=== PATIENT | male | born 1965 | race Caucasian/White ===

== ENCOUNTER 2020-03-14 05:51 | Inpatient (IN) | payer OTHER ==
[~2020-03-14] VITALS: Ht 177.8 cm; Wt 83.5 kg
--- OUTSIDE RECORDS SUMMARY | ~2020-03-14 | XMS | Encounter Summary ---
Demographics + + + | Address | [address] | | | [place] [address] | + + + | Home Phone | | + + + | Preferred Language | Unknown | + + + | Marital Status | Unknown | + + + | Baptist Affiliation | Unknown | + + + | Race | Unknown | + + + | Ethnic Group | Unknown | + + + Author + + + | Author | [facility] | + + + | Organization | [facility] | + + + | Address | Unknown | + + + | Phone | Unavailable | + + + Care Team Providers + +------+ + | Care Personnel Quality Assurance Auditor Name | Role | Phone | + +------+ + PCP | Unavailable | + +------+ + Encounter Details +--------+ + + + + | Date | Type | Department | Care Team | Description | +--------+ + + + + | 07/23/ | Office | Epic at [facility] | Felipe Myles, | Progress Note | | 2017 | Visit-Trans | [address] | MD [address] | | | | cribed | [place], [place] | [address] | | | | | [address] | [place], [place] | | | | | | [address] | | | | | | [phone] | | | | | | | | +--------+ + + + + Social History + +-------+ +--------+------+ | Tobacco Use | Types | Packs/Day | Years | Date | | | | | Used | | + +-------+ +--------+------+ | Never Assessed | | | | | + +-------+ +--------+------+ + + + | Sex Assigned at | Date Recorded | | | | + + + | Not on file | | + + + documented as of this encounter Progress Notes Felipe Myles MD - 01/23/2017 1:54 PM PDT51 year old left hand dominant male presents w ith a chief complaint of left hand pain for the past 3 months (04/24/16 date of injury). The pain is primarily located in the central palm over an area of an approximately 1 cm in diam eter mass which he reports was not present prior to an industrial work injury when a piece of steel fell on his right shoulder ended up falling severalfeet, striking his left palm vasyl arently on a bolt which was in the floor. Initially treatment was directed at the shoulder and back and he is undergoing further treatment of that through occupational medicine, [facility] at follow-up visits with occupational medicine he brought up the left hand, underwent an x-ray which was read as negative. 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 History and imp roved slowly with avoidance of use and avoidance of pressure over the mass. He does not rec all having a laceration at the time of the injury in the palm, no bleeding. PCP: Dr. Nayan Childress Referring Physician: Dr. 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 All other systems were negative and are documented in the intake patient questionaire, results of which are reviewed today in clinic. Physical Exam Height: 5'10 Weight: 198 lbs Appearsstated age, in no acute distress, alert and oriented to person, place, and date. No increased work of breathing, regular rate and rhythm left radial pulse. Intact hearing to spoken word, and mood and affect are somewhat anxious. UE: Patient has full and symmetric range of motion of bilateral elbows and wrists. Appearance/ROM: Distance to palmar crease is 0 cm in all fingers. Symmetric, full wrist ex tension and flexion as well as forearm rotation. There is an approximately 1 cm in diameter palpable nodule that is firm just proximal to the long and ring finger MPjoints in the centr al palm with slight dimpling distally, but no contracture, possibly consistent with palmar f ibromatosis/Dupuytren's nodule. It is fairly exquisitely tender to palpation, no erythema i s evident. No underlying palpable triggering, minimal tenderness MP joints dorsally. Strength: Patient has full 5/5 strength with wrist extension, flexion, pronation, supinatio n, finger flexion and extension, however there is a little bit ofapprehension and guarding w ith strength testing. There is no intrinsic atrophy. There is a strong and palpable firin g APB and firstdorsal interosseous. The other extrinsics and intrinsics to the fingers and t humb appear to be firing normally. Neurovascular: Patient has intact sensation to light touch in the median, radial, and ulnar nerve distributions. There is a 2+ radial pulse and brisk capillary refillthroughout all o f the fingers and thumb. 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 IMPRESSION: left palmar mass after trauma 3 months ago, differential includes palmar fibro matosis/Dupuytren's versus inclusion cyst versus some other etiology, pain symptoms somewhat out of proportion to exam PLAN: 1.I have explained to the patient the nature of the above possible diagnosis, the findings of the radiographic studies, and possible treatment options. All questions were answered. 2. We reviewed the relevant anatomy and pathophysiology at today's visit. 3. I wouldrecommend MRIwith and without contrast of the hand evaluate the mass and assess the etiology. Typically Dupuytren's is genetically inherited however there are some sporadi c accounts in the literature of trauma induced Dupuytren's, I will try to review that hunter stephen before the next appointment when he comes back for MRI review. I gave him some literatu re on Dupuytren's as that is my leading possible diagnosis, however confirmation pending MRI . I explained Dupuytren's is usually not painful but some evidence of painful nodules has malgorzata gerber described. Treatment could consist of corticosteroid injection or surgical excision wit h a known risk of worsening contracture. 4. Plan will be for follow-up after MRI.Electronically signed by Felipe Myles MD at 8:26 AM PDTdocumented in this encounter Plan of Treatment Not on filedocumented as of this encounter Visit Diagnoses Not on filedocumented in this encounter"
--- OUTSIDE RECORDS SUMMARY | ~2020-03-14 | XMS | Clinical Summary ---
Demographics + + + | Address | [address] | | | [place] [address] | + + + | Home Phone | | + + + | Preferred Language | Unknown | + + + | Marital Status | Unknown | + + + | Restorationist Affiliation | Unknown | + + + | Race | Unknown | + + + | Ethnic Group | Unknown | + + + Author + + + | Organization | Unknown | + + + | Address | Unknown | + + + | Phone | Unavailable | + + + Care Team Providers + +------+ + | Care Signal Intelligence/Electronic Warfare Name | Role | Phone | + +------+ + PCP | Unavailable | + +------+ + Source Comments EBEN is fully live on both [facility] and [facility] Allergies Not on File Medications Not on file Active Problems Not on file Social History + +-------+ +--------+------+ | Tobacco [...] on file | | + + + Last Filed Vital Signs Not on file Plan of Treatment + + +-------+ + | Health Maintenance | Due Date | Last | Comments | | | | Done | | + + +-------+ + | Influenza (Flu) | | | | | vaccination (#1) | 0 | | | + + +-------+ + | Pneumococcal | Aged Out | | No longer eligible based on patient's age | | vaccination | | | to complete this topic | + + +-------+ + Results Not on filefrom Last 3 Months"
--- OUTSIDE RECORDS SUMMARY | ~2020-03-14 | XMS | Encounter Summary ---
Demographics + + + | Address | [address] | | | [place] [address] | + + + | Home Phone | | + + + | Preferred Language | Unknown | + + + | Marital Status | Unknown | + + + | Mu-Ism Affiliation | Unknown | + + + [...] Team Providers + +------+ + | Care Sterile Preparation Technician Name | Role | Phone | + +------+ + PCP | Unavailable | + +------+ + Encounter Details +--------+ + + + + | Date | Type | Department | Care Team | Description | +--------+ + + + + | 08/12/ | Office | Epic at [facility] | Felipe Myles, | Progress Note | | 2017 | Visit-Trans | [address] | MD [address] | | | | cribed | [place], [place] | [address] | | | | | [address] | [place], [place] | | | | | | [address] | | | | | | [phone] | | | | | | | [...] Progress Notes Felipe Myles MD - 01/23/2017 1:24 PM PDT51 year old left hand dominant male presents f or follow-up of his left palmar mass, and MRI review. He initially presented to me a couple of weeks agowith a chief complaint of left hand pain for the past 3 months (04/24/16 date of injury). The pain is primarily located in the central palm over an area of an approximatel y 1 cm in diameter mass which he reports was not present prior to an industrial work injury when a piece of steel fell on his right shoulder ended up falling several feet, striking hi s left palm apparently on a bolt which was in the floor. Initially treatment was directed a t the shoulder and back and he is undergoing further treatment of that through occupational medicine, however at follow-up visits with occupational medicine he brought up the left hand , underwent an x-ray which was read as negative. 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 I was s uspicious for Dupuytren's nodule or someother entity, I ordered an MRI To better evaluate. This has been obtained and he is here for follow-up. PCP: Dr. Nayan Childress Referring Physician: Dr. Gao PMH: Negative PSH: Negative Allergies: NKDA Medications: None SH: Unknown Tobacco: Denies EtOH: Denies Occupation: [employer] @ [employer]: [place] FH: Negative ROS: Pertinent positives from original complete 12 system review include: as per history o f present illness. All other systems were negative and are documented inthe intake patient questionaire, results of which are reviewed today in clinic. Physical Exam Height: 5'10 Weight: 198 lbs Appears stated age, in no acute distress, alert and oriented to person, place, and date. N o increased work of breathing. Intact hearing to spokenword, and mood and affect are approp riate, he is less anxious today. UE: Patient has full and symmetric range of motion of bilateral elbows and wrists. Appearance/ROM: Distance to palmar crease is 0 cm in all fingers. Symmetric, full wrist ex tension and flexion as wellas forearm rotation. There is an approximately 1 cm in diameter p alpable nodule that is firm just proximal to the long and ring finger MP joints in the centr al palm with slight dimpling distally, but no contracture, possibly consistent with palmar f ibromatosis/Dupuytren's nodule. It is fairly exquisitely tender to palpation, no erythema i s evident. There is a little bit of dimpling at the distal aspect of the mass in the skin. N o underlying palpable triggering, minimal tenderness MP joints dorsally. Strength: Patient has full 5/5 strength with wrist extension, flexion, pronation, supinatio n, finger flexion and extension, however there is a little bit ofapprehension and guarding w ith strength testing. There is no intrinsic atrophy. There is a strong and palpable firin g APB and first dorsal interosseous. The other extrinsics and intrinsics to the fingers and thumbappear to be firing normally. Neurovascular: Patient has intact sensation to light touch in the median, radial, and ulnar nerve distributions. There is a 2+ radial pulse and brisk capillary refill throughout all of the fingers and thumb. 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 Patient's MRI is reviewed. This demonstrates a small amount of edema in the interosseousMu sculature and a superficial heterogeneous mass of about 1 cm in diameter that has the charac teristics fibromatosis. IMPRESSION: left palmar mass after trauma 3 months ago, differential includes palmar fibro matosis/Dupuytren's versus scar tissue or organized hematoma or neuroma. PLAN: 1. I have explained to the patient the nature of the above possible diagnosis, the finding s of the radiographic studies, and possible treatment options. All questions were answered. 2. We reviewed the relevant anatomy and pathophysiology at today's visit. 3. I reviewed the MRI with him, I explained that the characteristics are most in line with the Dupuytren's nodule, howeverI cannot make that diagnosis with complete certainty without excisional biopsy. I think given the significant symptoms he is having, it would be warrant ed to excise this mass for excisional biopsy and treatment. I explained the if it is a smal l neuroma, it could leave him with someneurologic deficit, namely a small area of numbness a lternatively if a Dupuytren's nodule, it could recur, or contracture could develop postopera tively. I explained the possible risks of complications with surgical intervention. I thi nk causation can be related to the trauma if indeed the mass was not present for his trauma , there is some literature supporting the notion that on occasion Dupuytren's can be sparke d by an acute trauma. Alternative treatment to surgical excision would be a trial of cortic osteroid injection or core needle biopsy. He is in favor of surgical e 4. After discussing surgical intervention and him agreeing to it, he states that he is unw illing to undergo surgery at [facility] due to prior experience, I do not have privileges elsew here, he says he will seek out a different hand surgeon I am happy to forward records.Electr onically signed by Felipe Myles MD at 02/05/2017 7:51 AM PDTdocumented in this encounter Plan of Treatment Not on filedocumented as of this encounter Visit Diagnoses Not on filedocumented in this encounter
[2020-03-14] MEDS ORDERED: JARDIANCE25 MG PO (06:26)
[2020-03-14] MEDS ORDERED: TOUJEO SOL300 UNIT/1 SUB-Q (06:28)
[2020-03-14] MEDS ORDERED: PROTONIX40 MG PO (06:28)
[2020-03-14] MEDS ORDERED: OZEMPIC1 MG/0.75 SUB-Q (06:28)
[2020-03-14] MEDS ORDERED: GLUCOPHAGE500 MG PO (06:29)
[2020-03-14] MEDS ORDERED: LOVASTATIN20 MG PO (06:29)
[2020-03-14] MEDS ORDERED: LISINOPRIL40 MG PO (06:29)
[2020-03-14] MEDS ORDERED: AMARYL4 MG PO (06:30)
[2020-03-14] MEDS ORDERED: METFORMIN HCL500 MG PO (11:24)
--- NOTE | 2020-03-14 12:30 | NUR ---
THIS RN IN PTS ROOM PER PT REQUEST. PT APPEARS TO BE IN SEVERE PAIN 9/10 PAIN. THIS RN PROVIDED PT WITH 1MG DILUADID. PT THEN OFF TO DAY SURGERY AT THIS TIME. THIS RN GAVE SHORT REPORT TO ILIR ALVAREZ.
--- NOTE | 2020-03-14 13:36 | CONS ---
[facility] [address] [place], [place] [address] Signed DATE OF CONSULTATION: 03/14/2020 CHIEF COMPLAINT: Right lower quadrant abdominal pain. HISTORY OF PRESENT ILLNESS: Hilda is a 54-year-old diabetic gentleman, who came out from [place], [place] to help his son with some house construction. 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 For the last couple of days, he was developing vague abdominal pain that became periumbilical and eventually it moved to the right lower quadrant. He has had nausea, vomiting, diarrhea, and some fevers. He came to emergency room for evaluation. In emergency room, he was tender in the right lower quadrant with an elevated white blood cell count. The CT scan confirmed his thickened dilated appendix with several appendicoliths. Consequently, he has been admitted and started on his IV antibiotics and hydration. We did have the Internal Medicine Service see him because of the history of diabetes. I did review currently. In the meantime, I have been in the operating room. PAST MEDICAL HISTORY: Diabetes, hypertension, gastroesophageal reflux disease, and hypercholesterolemia. PAST SURGICAL HISTORY: Includes left hand and a right inguinal hernia surgery at age 7. SOCIAL HISTORY: He does not smoke or drink. He lives in [place], [place]. 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 His primary care provider is Dr. Nayan Childress. His son lives here in [place], [place]. I have taken care of his son with respect to celiac sprue. His mother is Danica Roman at [phone]. His mother is with him today. FAMILY HISTORY: Mom had diabetes. REVIEW OF SYSTEMS: He had 10 systems reviewed and he talked to me about his right inguinal hernia repair at age 7. ALLERGIES: None. MEDICATIONS: Jardiance, Toujeo, Protonix, Ozempic, metformin, lisinopril, lovastatin and Amaryl. Electronically Signed By: VIPUL BARNETT MD 03/14/20 1336 PATIENT NAME: HILDA ROMAN CONSULTATION DATE OF : 65 REPORT #: [id number] PHYSICIAN: VIPUL BARNETT MD PCP: OTHER PCP REPORT IS CONFIDENTIAL AND NOT TO BE RELEASED WITHOUT AUTHORIZATION [facility] [address] [place], [place] [address] Signed PHYSICAL EXAMINATION: VITAL SIGNS: Blood pressure is 125/65, his heart rate is 94, respiratory rate 18, temperature 98.5, he is 98% on room air, he is 5 feet 10 inches at 83 kg. GENERAL: Hilda is a 54-year-old gentleman, lying supine in his hospital bed. His mom is at the bedside. He does not appear systemically ill or toxic. He is a good historian. LUNGS: Clear to auscultation bilaterally. HEART: Regular rate and rhythm without murmur. ABDOMEN: Moderately protuberant, but soft. He clearly has localized peritoneal signs and symptoms in the right lower quadrant. He has some ecchymoses in the right lower quadrant associated with his insulin shots. LABORATORY DATA: His white blood count is 22.5, neutrophils 79, BUN 20, creatinine 1.2, magnesium 1.6. Liver function tests are negative. Albumin is 4.7. Urinalysis showed glucose. Blood sugar was 155. RADIOGRAPHIC STUDIES: A CT scan of the abdomen and pelvis shows thickened dilated appendix with multiple appendicoliths. He has moderate periappendiceal fat stranding. No evidence of an obvious abscess. ASSESSMENT/PLAN: Hilda is a 54-year-old gentleman, who presents with his acute appendicitis. He has been admitted on IV fluids and antibiotics. Our Internal Medicine Service has seen him as well. I reviewed with him the above findings. We have reviewed the location and function of the appendix. We have reviewed laparoscopic versus open appendectomy. He understands the expected intraop and postop course. We did review the risks including, but not limited to bleeding, infection, scarring, change in contour of the skin, damage to bowel, appendiceal stump leak, postoperative intraabdominal abscess, incisional hernias and other unforeseen comorbidities. He has expressed understanding and would like to proceed. Vipul Barnett MD ALB/MODL /[id number] cc: Vipul Barnett MD Electronically Signed By: VIPUL BARNETT MD 03/14/20 1336 PATIENT NAME: HILDA ROMAN CONSULTATION DATE OF : 65 REPORT #: [id number] PHYSICIAN: VIPUL BARNETT MD PCP: OTHER PCP REPORT IS CONFIDENTIAL AND NOT TO BE RELEASED WITHOUT AUTHORIZATION [address] [address] Signed Sj Childress DO Copies: VIPUL BARNETT MD ~ Electronically Signed By: VIPUL BARNETT MD 03/14/20 1336 PATIENT NAME: HILDA ROMAN CONSULTATION DATE OF : 65 REPORT #: [id number] PHYSICIAN: VIPUL BARNETT MD PCP: OTHER PCP REPORT IS CONFIDENTIAL AND NOT TO BE RELEASED WITHOUT AUTHORIZATION
--- NOTE | 2020-03-14 14:03 | NUR ---
PATIENT AWAKE IN CHAIR, SISTER IN ROOM. VITALS AND I&OS CHARTED. CALL LIGHT IN REACH
--- NOTE | 2020-03-14 15:34 | NUR ---
03/14/20 1534 [place] 1528 PT ARRIVED TO PACU WITH ORAL AIRWAY IN PLACE, O2 MASK AT 8L. SECOND RN AT BEDSIDE DOING JAW THRUST TO MAINTAIN AIRWAY. PT NONAROUSABLE TO PAINFUL STIMULI.
--- NOTE | 2020-03-14 16:30 | NUR ---
PT ARRIVED BACK FROM SURGERY AT THIS TIME. PT STATES THAT HE ISN'T HAVING PAIN AT THIS TIME OR NAUSEA. PT HAS 2 INSICIONS, 1 RIGHT UPPER QUADRANT AND ONE MIDLINE INSCION. PTS MOM IN ROOM AT THIS TIME
--- NOTE | 2020-03-14 17:30 | NUR ---
THIS RN IN PTS ROOM TO CHECK ON PT. PT STATES THAT HE IS HAVING NO PAIN OR NAUSEA AT THIS TIME. PTS DRESSING IS CLEAN/DRY AND INTACT. PTS ONLY CONCERN AT THIS TIME IS TO HAVE HIS CATHETER TAKEN OUT AND TO GET OFF THE OXYGEN. THIS RN TITRATED PT OFF OF OXYGEN TO NASAL CANNULA. PT SATING 92-93% ON ROOM AIR.
--- NOTE | 2020-03-14 17:53 | NUR ---
THIS RN COLLED TO NOTIFY HIM THAT PTS REQUEST IS TO HAVE HIS CATHETER. OKAY TO HAVE FUNG OUT. THIS RN REMOVED FUNG AND PT TOLERATED WELL.
--- NOTE | 2020-03-14 18:43 | NUR ---
THIS RN IN PTS ROOM TO DO POST OPP CHECK #3. PT STATES THAT HE HAS "SORENESS" IN HIS ABDOMEN BUT DENIES THE NEED FOR SOMETHING FOR THE PAIN. PTS DRESSING IS CLEAN/DRY/INTACT.
--- NOTE | 2020-03-14 19:20 | NUR ---
PT CALLED, CPOX WAS BEEPING, RESOLVED ISSUE, PT STATES PAIN MEDS FELT LIKT THEY WERE WEARING OFF, INFORMED PRIMARY RN, LAST SET OF POSTOP VITALS TAKEN, NO FURTHER REQUESTS FOR ME AT THIS TIME, RN IN TO ASSESS PAIN MANAGEMENT
--- NOTE | 2020-03-14 19:39 | NUR ---
PT REPORTS /10 ABD PAIN, PRN PAIN MED PROVIDED. SCHEDULED MEDS PROVIDED. IV WNL, CDI, FLUSHED WELL. INCSISIONS WNL. VS TAKEN BY HANNAH LE. NO OTHER NEEDS AT THIS TIME. CALL LIGHT IN REACH.
--- NOTE | 2020-03-14 20:22 | NUR ---
PT REPORT RECEIVED FROM HAROON ALVAREZ. PT RESTING IN BED. NO NEEDS AT THIS TIME. CALL LIGHT IN REACH.
--- NOTE | 2020-03-14 21:25 | NUR ---
TOOK PT VITALS, PT IS DUE TO VOID, PT C/O PAIN 'STARTING TO COME BACK' PT DENIES NEEDING TO VOID AT THIS TIME, PT ALSO TURNED OFF CPOX, PT STATES, 'IT'S BEEN ALARMING TO MUCH,' EDUCATED PT ON THE IMPORTANCE OF KEEPING THE CPOX ON, TOLD PT I WILL ASK THE PRIMARY RN ABT TAKING THE CPOX OFF, INFORMED RN OF PT PAIN, NO FURTHER REQUESTS AT THIS TIME
--- NOTE | 2020-03-14 21:55 | NUR ---
ASSESSMENT COMPLETED. SCHEDULED MEDS PROVIDED. PT DECLINED THE I UNIT INSULIN, DOCUMENTED. PT PAIN 4/10 IN ABD, PRN PAIN MED PROVIDED. GCS 15, A&O X4. CPOX 93%, RA. LUNGS CLEAR. ABD SOFT, TENDER, BOWEL TONES ACTIVE. RUQ PUNCTURE COVERED. WNL. MIDLINE INCISION COVERED, SMALL AREA OF SHADOWING. PT STATES ABD IS NORMAL. CMS INTACT X4 EXTREMITIES. IV WNL, FLUSHED IV MEDS AND FLUIDS INFUSING PER ORDER. ICE WATER AND JELLO PROVIDED. NO OTHER NEEDS AT THIS TIME. FAMILY IN ROOM. CALL LIGHT IN REACH.
--- NOTE | 2020-03-15 00:05 | NUR ---
PT STATES HE HAS 7OR 01/01 ABD PAIN, PRN PAIN MED PROVIDED. IV WNL, IV FLUIDS INFUSING PER ORDER. CALL LIGHT IN REACH.
--- NOTE | 2020-03-15 02:27 | NUR ---
TOOK VITALS, I&Os IN, PT EDUCATION ON I.S. DUE TO TEMP OF 99.0*, RN INFORMED, IN IN RM TO HANG IV ANTIBIOTIC, NO FURTHER REQUESTS AT THIS TIME
--- NOTE | 2020-03-15 02:31 | NUR ---
ASSESSMENT COMPLETED. SCHEDULED MEDS PROVIDED. 12/01 ABD PAIN, PRN PAIN MED PROVIDED. GCS 15, A&O X4. LUNGS CLEAR. ABD SOFT, NONTENDER, PT STATES NORMAL. RUQ PUCTURE WNL, DRY. MIDLINE INCISION WNL, SHOWS SHADOWING OF BLOOD. CMS INTACT X4 EXTREMITIES. NO OTHER NEEDS AT THIS TIME. CALL LIGHT IN REACH.
--- NOTE | 2020-03-15 04:23 | NUR ---
PT STATES HE HAS 7/10 ABD PAIN, PRN PAIN MED PROVIDED. ICE WATER PROVIDED. NO OTHER NEEDS AT THIS TIME. CALL LIGHT IN REACH.
--- NOTE | 2020-03-15 05:07 | NUR ---
PT DID NOT SLEEP WELL THIS SHIFT. PRN PAIN MED MODERATELY MANAGED ABD PAIN FOR ABOUT 1.5 HOURS AT A TIME. PT STATES PAIN STILL FEELS LIKE HE CAN'T TAKE A FULL DEEP BREATH. COLD THERAPY DID NOT HELP. VSS. UOS. INCISIONS WNL, SHADOWING ON COVERING. PT TOLERATED IV MEDS WELL. IV WNL, FLUSHED WELL. PT STATES HE IS PASSING GAS, ABD IS NORMAL, ACTIVE BOWEL TONES, TENDER.
--- NOTE | 2020-03-15 05:37 | OR ---
[facility] [address], [place] [address] Signed DATE OF OPERATION: 03/14/2020 SURGEON: Vipul Mock MD PREOPERATIVE DIAGNOSIS: Acute appendicitis. POSTOPERATIVE DIAGNOSIS: Acute necrotic appendicitis. PROCEDURE: Laparoscopic converted to open appendectomy. ESTIMATED BLOOD LOSS: Minimal. FINDINGS: Hilda had his appendix curled inferiorly and medially and densely adherent to the underlying retroperitoneum and mesentery to the terminal ileum. Consequently, we could not raise that up in the operative field laparoscopically. We therefore converted him to an open appendectomy. His appendix is necrotic, but fortunately there was no abscess cavity. INDICATIONS: Hilda is a 54-year-old gentleman, who lives in the [place], [place] area. 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 About two maybe even three days ago, he developed generalized abdominal pain that became periumbilical and eventually became right lower quadrant. He came to emergency room for evaluation. He had localized peritoneal signs and symptoms in the right lower quadrant. White count was elevated at 22.5. The CT scan showed the dilated thickened appendix with multiple appendicolith. He had moderate periappendiceal fat straining. I have been asked to admit him as a general surgeon on-call. He was admitted, hydrated given antibiotics and pain control. We did have our Internal Medicine Service see him for his medical issues particularly his diabetes. I had met with Hilda and his , Danica in the hospital room. We reviewed the above findings. We reviewed the location and function of the appendix. We discussed laparoscopic versus open appendectomy. I had shared with Hilda and his that the appendix was underneath his terminal ileum that he might be in the 3% cases that we have to do open. However, we always start laparoscopically. We had reviewed the expected intraop and postop course. They do understand there is a risk including, but not limited to bleeding, infection, scarring, change in contour of skin damage to Electronically Signed By: VIPUL MOCK MD 03/15/20 0537 PATIENT NAME: HILDA MILLAN OPERATIVE REPORT DATE OF : 65 REPORT #: [id number] PHYSICIAN: VIPUL MOCK MD PCP: OTHER PCP REPORT IS CONFIDENTIAL AND NOT TO BE RELEASED WITHOUT AUTHORIZATION [address] [address] Signed bowel, appendiceal stump leak, postoperative intraabdominal abscess, incisional hernias and other unforeseen comorbidities. They had expressed understanding and wished to proceed. DESCRIPTION OF PROCEDURE: Hilda was taken into the operating room and placed in a supine position under general endotracheal tube anesthesia. Hilda informed us he has a very narrow airway. Indeed, our anesthesia provider found that to be true. He was already on preoperative antibiotics along with subcutaneous Lovenox. His SCDs were in place. A Novak catheter was inserted with return of clear yellow urine without difficulty. He was then prepped and draped in the usual sterile fashion. We placed our trocars in our usual positions under direct visualization of the camera without difficulty. We were able to rotate the inflamed terminal ileum off the area of the cecum and the appendix. He had turbid fluid in the pelvis. The cecum was generally mobile, but the appendix was densely adherent posteriorly. We simply could not safely dissect through that area with our laparoscopic instruments. In addition, Hilda on physical exam had a small umbilical hernia. Consequently, we had used the umbilical hernia for our trocar site. We simply extended his periumbilical incision vertically and slightly wider than my hand. We were able to then retract the abdomen over and use moist laps to hold the small bowel and cecum back in out of the away. Indeed, his appendix was absolutely adhered to the mesentery of the terminal ileum. We used our Pean clamp to dissect free the base of the appendix. It was divided and that was tied off with a suture ligature of oh Vicryl suture. The appendiceal stump was then gently cauterized. Even with our index finger and thumb, we could not separate the necrotic appendix from the underlying mesentery. Consequently, we simply used our cautery and came to the mesentery, the appendiceal mesentery right next to the appendix. We did have an 0 Vicryl suture ready in case the appendiceal artery , but it never did. I suspect it is thrombosed. Once the appendix was freed, it was passed off the field. He had some inflammatory changes posteriorly, but no true abscess cavity. We went ahead and irrigated this area with warm antibiotic saline solution until clear. The cecum and small bowel were then returned to its position and omentum was placed over that. We then closed our midline fascia with interrupted #1 [id number] PDS sutures. We had used our laparoscopic suturing device to pass 0 Vicryl suture on either side of the fascia of the right subcostal trocar site and it had been closed primarily prior to opening the abdomen. We then injected local anesthetic into both trocar sites as well as the periumbilical incision. The wounds were all irrigated and suctioned out until clear. The umbilical skin and fascia was held back down to the midline with an interrupted 2-0 PDS suture. The dermis of each incision was then reapproximated with interrupted 3-0 subcuticular Monocryl sutures. We then used carol to reapproximate the skin of the periumbilical vertical incision. After this, dry gauze and tape were applied to all three incisions. His Novak catheter was left in place. Hilda was awakened from his anesthesia, extubated in the OR, and taken to recovery room in stable condition. Electronically Signed By: VIPUL MOCK MD 03/15/20 0537 PATIENT NAME: HILDA MILLAN OPERATIVE REPORT DATE OF : 65 REPORT #: [id number] PHYSICIAN: VIPUL MOCK MD PCP: OTHER PCP REPORT IS CONFIDENTIAL AND NOT TO BE RELEASED WITHOUT AUTHORIZATION [address] [address] Signed MD ANJALI Silver/RYLAND /[id number] cc: Dr. Nayan Childress Copies: ~ Electronically Signed By: VIPUL MOCK MD 03/15/20 0537 PATIENT NAME: HILDA MILLAN OPERATIVE REPORT DATE OF : 65 REPORT #: [id number] PHYSICIAN: VIPUL MOCK MD PCP: OTHER PCP REPORT IS CONFIDENTIAL AND NOT TO BE RELEASED WITHOUT AUTHORIZATION
--- NOTE | 2020-03-15 06:39 | NUR ---
PT STATES HE HAS 9/10 ABD PAIN AND NAUSEA. PRN PAIN AND NAUSEA MEDS PROVIDED. NO OTHER NEEDS AT THIS TIME. CALL LIGHT IN REACH.
--- NOTE | 2020-03-15 07:29 | NUR ---
0700; REPORT RECEIVED FROM SHURTI ALVAREZ. PT RESTING IN HIS BED WITH HIS CALL BERRY WITHIN REACH AND NO NEEDS AT THIS TIME.
--- NOTE | 2020-03-15 08:11 | NUR ---
PT STATES HIS ABD PAIN IS UNDER CONTROL AT A 3/10 AT THIS TIME. MIDLINE ABD DRESSING NOTED TO HAVE SOME SHADOWING BUT REMAINS INTACT. PT DENIES ANY OTHER PROBLEMS AT THIS TIME. PT VISITING WITH HIS AND IS EATING BREAKFAST AT THIS TIME. SEE ASSESSMENT FOR A FULL UPDATE.
--- NOTE | 2020-03-15 08:58 | NUR ---
Pt states his abd pain is a 7/10 and he requested pain medication. Pt medicated as ordered. Philipp has removed his cpox and refused to leave it in place. He was informed of the importance of it but continued to refuse. Due to the pt's refusal of the cpox he was placed on 2l via nc after medication for pain.
--- NOTE | 2020-03-15 09:14 | EKG ---
[facility] [address] [facility] [place] [address] Signed Normal sinus rhythm Normal ECG No previous ECGs available Confirmed by BARBIE ABRUE MD ([id number]) on 03/15/2020 9:14:21 AM Electronically Signed By: BARBIE ABREU MD 03/15/2014 PATIENT NAME: HILDA MILLAN Electrocardiogram DATE OF : 65 PHYSICIAN: BARBIE ABREU MD REPORT #: [id number] REPORT IS CONFIDENTIAL AND NOT TO BE RELEASED WITHOUT AUTHORIZATION
[2020-03-15] MEDS ORDERED: OXYCODONE HCL30 MG PO (09:40)
--- NOTE | 2020-03-15 10:00 | NUR ---
PT RESTING IN HIS BED AND HE STATES HIS PAIN IS NOW A 3/10 WHICH IS ACCEPTABLE TO HIM. SAT ON 2L VIA NC IS 94%.
--- NOTE | 2020-03-15 11:04 | NUR ---
ATTEMPT TO DISCUSS CHRONIC PAIN MEDICATION USE WITH PATIENT. 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 CALL TO DR. MOCK TO UPDATE, PLAN TO STAY THE COURSE WITH CURRENT PAIN MEDICATION ORDERED. PATIENT BECAME DISAGREEABLE ABOUT MEDICATIONS, WEARING OXYGEN, KEEPING PULSE OX ON. DR. MOCK ADVISED TO JUST DOCUMENT WHEN PATIENT REFUSES INTERVENTION.
--- NOTE | 2020-03-15 11:39 | NUR ---
Pt removed his o2 and his sat is now 96% on room air. He states his pain is a 6/10 and he was medicated as he requested for pain. Will continue to monitor. Pt refused to have his dressing removed at this time, he states he will allow it to be removed just before his shower.
--- NOTE | 2020-03-15 12:22 | NUR ---
Pt sitting up in his chair eating lunch and speaking with his visitor. He states his pain is now a 3/10.
--- NOTE | 2020-03-15 13:01 | NUR ---
PT ALERT, ORIENTED AND VISITING WITH HIS MOTHER AT . PT SEEMED PLEASED WITH CARE, AND HIS MOTHER COMMENTED ON HOW WELL THE ED TOOK CARE OF HIM. STAFF IN TO TAKE VS. GAVE BLESSING AND WILL FOLLOW
--- NOTE | 2020-03-15 13:59 | NUR ---
PT STATES HE WILL ALLOW THE DRESSING TO BE REMOVED WHEN HE SHOWERS. PT STATES HIS PAIN IS A 6 AND REQUESTED PAIN MEDICATION AGAIN, SEE EMAR.
--- NOTE | 2020-03-15 15:20 | NUR ---
Pt ambulating in the halls with his family member at this time. Pt steady on his feet and is ambulating without difficulty.
--- NOTE | 2020-03-15 15:56 | NUR ---
Spoke with pt, he plans on staying for 1-2 more days in the hospital and then staying in [place] for 1 more week for follow up. Don states he is active and drives. No concerns to discharge. Parents and son will assist him.
--- NOTE | 2020-03-15 16:24 | NUR ---
Pt states his pain is now a 5 and he is requesting pain medication, see emar. Pt states he will walk again after the pain medication starts working.
--- NOTE | 2020-03-15 17:52 | NUR ---
Pt ambulating with his at this time. This is the second time the pt has ambulated in the halls this shift.
--- NOTE | 2020-03-15 18:44 | NUR ---
Pt resting in his bed and denies any needs at this time.
--- NOTE | 2020-03-15 19:20 | NUR ---
SHIFT REPORT RECEIVED FROM SHANON ALVAREZ. PT IN BED, VISITING WITH FAMILY. NO NEEDS AT THIS TIME. CALL LIGHT IN REACH.
--- NOTE | 2020-03-15 20:08 | NUR ---
ASSESSEMENT COMPLETED. CBG 165, PT DECLINES INSULIN. SCHEDULED MEDS PROVIDED. GCS 15, A&O X4. LUNGS CLEAR. HEART TONES REGULAR. ABD FIRM, MILDLY DISTENDED, TENDER TO TOUCH. ABD PAIN 5/10, PRN PAIN MEDS PROVIDED. INCISIONS WNL, GAUZE ON MIDLINE. PUNCTURE SITE OPEN TO AIR, WNL. NO EDEMA NOTED. CMS INTACT. IV WNL, FLUSHED WELL. NO OTHER NEEDS AT THIS TIME. CALL LIGHT IN REACH.
--- NOTE | 2020-03-15 22:17 | NUR ---
PT RESTING IN BED, IV PUMP ALARMING. PUMP ISSUE RESOLVED. PAIN 2/10 IN ABD, NO NEED FOR INTERVENTION. CPOX 95% ON 2L NC. NO OTHER NEEDS AT THIS TIME. CALL LIGHT IN REACH. IV FLUIDS INFUSING PER ORDER.
--- NOTE | 2020-03-15 22:37 | PATH ---
[facility] [address] [place], [place] [address] Signed ORDERING PHYSICIAN: Theron Barnett MD PATIENT NAME: HILDA MILLAN GENDER: Alfa : 1965 Prior History: No cases found. SPECIMEN(S): MOLECULAR PATHOLOGY RESULTS: SARS-CoV-2 Not Detected ADDITIONAL NOTES.: The [employer]verse Fusion SARS-CoV-2 Assay is a multiplex real-time PCR (RT-PCR) in vitro diagnostic test intended for the qualitative detection of RNA from SARS-CoV-2 from individuals who meet COVID-19 clinical and/or epidemiological criteria. In general, SARS-CoV-2 RNA can be detected during the acute phase of infection. Positive results indicate the presence of SARS-CoV-2 RNA. Clinical correlation with patient history and other diagnostic information is necessary to determine patient infection status. Positive results do not rule out bacterial infection or co-infection with other viruses. Negative results do not preclude SARS-CoV-2 infection and should not be used as the sole basis for patient management decisions. Negative results must be combined with other clinical observations, patient history, and epidemiological information. The Converse Fusion SARS-CoV-2 Assay is not yet approved or cleared by the [place] FDA. When there are no FDA-approved or cleared tests available, and other criteria are met, FDA can make tests available under an emergency access mechanism called an Emergency Use Authorization (EUA). The EUA for this test is supported by the Station Operator of Health and Human Service's (HHS's) declaration that circumstances exist to justify the emergency use of in vitro diagnostics for the detection and/or diagnosis of the virus that causes COVID-19. This EUA will remain in effect for the duration of the COVID-19 declaration justifying emergency of IVDs, unless it is terminated or revoked by FDA, after which the test may no longer be used. The Converse Fusion SARS-CoV-2 Assay is for use only under EUA PATIENT NAME: HILDA MILLAN PATHOLOGY DATE OF : 65 REPORT #: [id number] PHYSICIAN: RICKY PATHOLOGY PCP: OTHER PCP REPORT IS CONFIDENTIAL AND NOT TO BE RELEASED WITHOUT AUTHORIZATION [facility] [address] [place], [place] [address] Signed in [place] laboratories certified under the Clinical Laboratory Improvement Amendments of 1988 (CLIA) to perform high complexity tests. [facility] is certified under CLIA to perform high complexity clinical laboratory testing. PERFORMING LABORATORY.: Molecular testing was performed by [facility] [place] [address] (Vp Customer Development: Hardeep Romero D.O.; CLIA#: [id number]) Diagnostician: System Interface Pathologist Electronically Signed 03/15/2020 Copies: ~ PATIENT NAME: HILDA MILLAN PATHOLOGY DATE OF : 65 REPORT #: [id number] PHYSICIAN: RICKY BARCLAY PCP: OTHER PCP REPORT IS CONFIDENTIAL AND NOT TO BE RELEASED WITHOUT AUTHORIZATION
--- NOTE | 2020-03-16 | NUR ---
PT AWAKE IN ROOM. IV FLUIDS INFUSING PER ORDER. JELLO, PUDDING AND ICE WATER PROVIDED. CPOX 98% ON RA. CPOX OFF, WILL DO SPOT CHECKS . ABD PAIN 08/01, PT DENIES NEED FOR INTERVENTION. ICE PACK DECLINED. NO OTHER NEEDS AT THIS TIME. CALL LIGHT IN REACH.
--- NOTE | 2020-03-16 01:24 | NUR ---
PT CALLED D/T BEEPING IV PUMP. IT IS NOW INFUSING FINE AND PT DENIES FURTHER NEEDS. CALL LIGHT IS CLOSE AND FRESH WATER PROVIDED.
--- NOTE | 2020-03-16 02:23 | NUR ---
ASSESSMENT COMPLETED. SCHEDULED MEDS PROVIDED. ABD PAIN 8/10, PRN PAIN MED PROVIDED. PT REPORTS NAUSEA, PRN NAUSEA MED PROVIDED. GCS 15, A&O X4. SPO2 98% RA. LUNGS CLEAR. ABD FIRM, TENDER, MILDLY DISTENDED. INCISIONS WNL, OPEN TO AIR, NO DISCHARGE NOTED. CMS INTACT. BOWEL TONES ACTIVE. WARM TEA PROVIDED. NO OTHER NEEDS AT THIS TIME. CALL LIGHT IN REACH.
--- NOTE | 2020-03-16 04:51 | NUR ---
PT RESTING IN BED, EYES CLOSED. RR EVEN, UNLABORED. SPO2 92% ON RA.
--- NOTE | 2020-03-16 06:33 | NUR ---
new bag iv fluids provided. pt walking halls with spouse. iv wnl. call light in reach.
--- NOTE | 2020-03-16 07:40 | NUR ---
IN ROOM TO COMPLETE ASSESSMENT. PT COMPLAINING OF PAIN. GAVE 2 TABS NORCO 10/325 PO. AT BEDSIDE WITH PATIENT. DISCUSSED PAIN MANAGEMENT WITH PT. PT VERBALIZED UNDERSTANDING.
--- NOTE | 2020-03-16 09:22 | NUR ---
PATIENT UP IN BED, FAMILY IN ROOM. VITALS AND I&OS CHARTED, NO OTHER NEEDS AT THIS TIME
--- NOTE | 2020-03-16 09:25 | NUR ---
PT RESTING AT EDGE OF BED WITH VISITOR IN ROOM. PT STATED, "MY PAIN IS GOOD." DENIES NEEDS AT THIS TIME.
--- NOTE | 2020-03-16 10:42 | NUR ---
Pt resting at edge of bed with visitor in room. Rating pain 5/10 in abdomen.
--- NOTE | 2020-03-16 11:27 | NUR ---
Pt complained of pain 5/10 in abdomen. gave 2 tabs norco 10/325 PO.
--- NOTE | 2020-03-16 12:12 | NUR ---
PER MIMI SEYMOUR, PATIENT AMBULATED 6X AROUND NURSES STATION YESTERDAY 03/15.
--- NOTE | 2020-03-16 14:01 | NUR ---
PATIENT AWAKE IN BED, MOTHER IN ROOM. VITALS AND I&OS CHARTED, NO OTHER NEEDS AT THIS TIME
--- NOTE | 2020-03-16 14:06 | NUR ---
PT RESTING IN BED WITH VISITOR AT BEDSIDE. REPORTS FEELING A LOT OF GAS. ENCOURAGED PT TO AMBULATE IN HALLWAY. VERBALIZED UNDERSTANDING. DENIES NEEDS AT THIS TIME.
--- NOTE | 2020-03-16 16:15 | NUR ---
Pt up and ambulating in room. complaining of abdominal pain 10/01. requesting pain medication at this time. gave 2 tabs norco 10/325 PO. also gave 8mg zofran IV per patient request at this time.
--- NOTE | 2020-03-16 17:17 | NUR ---
PT UP AND AMBULATING IN HALLWAY WITH . PT TOLERATING ACTIVITY WELL.
--- NOTE | 2020-03-16 18:12 | NUR ---
pt up and ambulating in hallway with . Pt tolerating activity well.
--- NOTE | 2020-03-16 18:20 | NUR ---
PATIENT AWAKE IN BED, IN ROOM. PATIENT JUST AMBULATED 3X IN HALLS. NO OTHER NEEDS AT THIS TIME
--- NOTE | 2020-03-16 18:29 | NUR ---
PATIENT REPORTS A TOTAL OF 8 LAPS AROUND NURSES STATION THIS EVENING
--- NOTE | 2020-03-16 18:41 | NUR ---
PT HAS HAD GOOD PAIN CONTROL WITH NORCO THROUGHOUT SHIFT. UP AND AMBULATING IN HALLWAYS WITH . MIDLINE INCISION WITH TYESHA INTACT. ACTIVE BOWEL TONES AND REPORTS PASSING HARISH. LAST BM 03/12/20.
--- NOTE | 2020-03-16 19:34 | NUR ---
ASPHALT TAMPING MACHINE OPERATOR ROUNDING NOTE. PT RESTING IN BED, MAKING JOKES. PT'S RESTING IN CHAIR AT BEDSIDE. QUESTIONS, CONCERNS, AND NEEDS DENIED AT THIS TIME. CALL LIGHT IN REACH. WHITE BOARD UPDATED.
--- NOTE | 2020-03-16 20:22 | NUR ---
PAIN IN ABD 5/10, PRN PAIN MED PROVIDED. SCHEDULED MED PROVIDED. GCS 15, A&O X4. LUNGS CLEAR. ABD FIRM, TENDER, SEVERLY DISTENDED, BOWEL TONES ACTIVE. INCISIONS WNL, OPEN TO AIR. CMS INTACT . HEART TONES REGULAR. IV WNL, FLUSHED WELL. ASSESSMENT, VS AND I&O COMPLETED. NO OTHER NEEDS AT THIS TIME. CALL LIGHT IN REACH.
--- NOTE | 2020-03-16 21:02 | NUR ---
cbg 124, no coverage required.
--- NOTE | 2020-03-17 | NUR ---
PT RESTING IN BED, EYES CLOSED. RR EVEN, UNLABORED. IV FLUIDS INFUSING PER ORDER. CALL LIGHT IN REACH. FAMILY IN ROOM.
--- NOTE | 2020-03-17 00:43 | NUR ---
PT REPORTS 5/10 ABD PAIN AND NAUSEA, PRN PAIN AND NAUSEA MEDS PROVIDED. IV PUMP ALARMING. IV SITE DRESSING CHANGED, IV FLUSHED WELL. NEW BAG OF IV FLUIDS PROVIDED. FAMILY IN ROOM. NO OTHER NEEDS AT THIS TIME. CALL LIGHT IN REACH.
--- NOTE | 2020-03-17 02:39 | NUR ---
SCHEDULED MEDS PROVIDED. PT REPORTS 2/10 ABD PAIN, DENIES NEED FOR INTERVENTION. IV WNL. INCISION WNL. ASSESSMENT COMPLETED. ABD FIRM, SEVERLY BLOATED, TENDER, BOWEL TONES ACTIVE. NO OTHER NEEDS AT THIS TIME CALL LIGHT IN REACH.
--- NOTE | 2020-03-17 06:33 | NUR ---
PT UTILIZES CALL LIGHT, REPORTS PAIN 10/10 TO ABD. ALSO REPORTS NAUSEA. PRN NORCO AND ZOFRAN ADMINISTERED. SEE EMAR. ICE WATER PROVIDED. PT DENIES FURTHER NEEDS AT THIS TIME. CALL LIGHT IN REACH.
--- NOTE | 2020-03-17 07:42 | NUR ---
PT AWAKE AFTER BEDSIDE REPORT, /GIRLFRIEND AT BEDSIDE. PT RATES PAIN 3/10 STATES HE IS "JUST FINE NOW, MUCH BETTER THAN HE WAS" DR MOCK IN EARLIER INCREASES IV RATE AND RETURNS PT TO CLEAR LIQUID DIET. PT AGREES TO AMBULATE SEVERAL TIMES THIS SHIFT. FRESH H20 PROVIDED. DENIES OTHER NEEDS
--- NOTE | 2020-03-17 09:31 | NUR ---
PT TOLERATES CLEAR LIQUID DIET NO C/O NAUSEA OR DISCOMFORTS. FRIEND REMAINS AT BEDSIDE PT VISITING ACTIVELY
--- NOTE | 2020-03-17 12:49 | NUR ---
PT RESTING IN BED AGREES PAIN CONTROL HAS BEEN GOOD TODAY. ANTICIPATES TAKING A SHOWER AND THEN WALKING THE HALLS
--- NOTE | 2020-03-17 13:29 | NUR ---
PT JUST HAD A SHOWER, WELL TOLERATED. NO C/O PAIN OR OTHER. REPORTS PASSING LARGE AMOUNTS OF GAS NO STOOL
--- NOTE | 2020-03-17 15:20 | NUR ---
PT UP AMBULATING THE VARGAS VISITOR IS WITH HIM,
--- NOTE | 2020-03-17 17:50 | NUR ---
PT APPEARS TO HAVE HAD A GOOD SHIFT WITH NO C/O OF PAIN OR NAUSEA SINCE BEFORE 0800. PT HAS REQUESTED ZOFRAN AND PAIN MEDS AT REGULAR INTERVALS BUT WITHOUT C/O DISCOMFORT. PT HAS AMBULATED, SHOWERED, VISITED AND JOKED. APPEARS UPBEAT AND JOVIAL.
--- NOTE | 2020-03-17 19:24 | NUR ---
PATIENT WALKED 24 LAPS TODAY AROUND MED SURG.
--- NOTE | 2020-03-17 19:48 | NUR ---
REPORT RECEIVED FROM DAY SHIFT RN. PT LYING IN BED ALERT AND ORIENTED. DENIES NEEDS AT THIS TIME. IVF INFUSING. WHITE BOARD UPDATED. CALL LIGHT IN REACH.
--- NOTE | 2020-03-17 20:30 | NUR ---
EVENING ASSESSMENT COMPLETE. SCHEDULED MEDS ADMINISTERED PER EMAR. IVF INFUSING. IV FLUSHED AND PATENT. IV ABX INFUSING. MIDLINE ABD INCISION INTACT WITH TYESHA. NO DRAINAGE NOTED. REDNESS NOTED ON LOWER ABD, WARM TO TOUCH. PT REPORTS MD AWARE. PT ALSO REPORTS GENERALIZED EDEMA WHICH HE BELIEVES IS FROM IVF. PRN ADMINISTERED FOR NAUSEA. PT REPORTS PAIN IS CONTROLLED AT THIS TIME. NO QUESTIONS OR CONCERNS. CALL LIGHT IN REACH.
--- NOTE | 2020-03-17 21:00 | NUR ---
V/S AND I&O TAKEN AND CHARTED. BLOOD SUGAR CHECK DONE AND RECORDED.
--- NOTE | 2020-03-17 21:14 | NUR ---
FRONT DESK ADMIN ROUNDING NOTE. PT RESTING IN BED WITH AT BEDSIDE. STATES THAT PAIN IS WELL CONTROLLED AT THIS TIME. SCHEDULED MEDICATION INTIATED. IV FLUSHED, WNL. PT DENIES QUESTIONS, CONCERNS, OR NEEDS. CALL LIGHT IN REACH. WHITE BOARD UPDATED.
--- NOTE | 2020-03-17 22:22 | NUR ---
PT ABMULATING IN [address], SARIKA BECK. C/O HEART BURN. RN INITIATED ORDER FOR MAALOX ENTERED. PT REPORTS HE IS STILL "A LITTLE NAUSEOUS". DENIES NEED FOR ADDITIONAL PRN AT THIS TIME.
--- NOTE | 2020-03-18 00:38 | NUR ---
PT C/O NAUSEA. PRN PHENERGAN INFUSED OVER 10 MIN IN 20 ML NS ON PUMP. PRIOR TO IV ADMINISTRATION IV FLUSHED AND PATENT. NO C/O PAIN WITH INFUSION.
--- NOTE | 2020-03-18 01:03 | NUR ---
PRN ADMINISTERED FOR 5/10 ABD PAIN. PT REPORTS NAUSEA IMPROVED AFTER PRN. FRESH ICE WATER PROVIDED.
--- NOTE | 2020-03-18 04:04 | NUR ---
PT RESTING IN BED WITH EYES CLOSED, NAD. IV ABX INFUSING. SIGNIFICANT OTHER IN ROOM.
--- NOTE | 2020-03-18 06:49 | NUR ---
VS AND I&O COMPLETE. BP NOTED TO BE ELEVATED. PT THOUGHT IT WAS DUE TO AM LAB DRAWS. PRN FOR PAIN AND NAUSEA ADMINISTERED BY COLLECTION SYSTEMS TECHNICIAN. PT STATES "THE NAUSEA HAS SURPASSED THE PAIN". BOWEL TONES ACTIVE. PT REPORTS FLATUS. ABD INCISION UNCHANGED FROM PREVIOUS ASSESSMENT. PT DENIES FURTHER NEEDS AT THIS TIME. CALL LIGHT IN REACH.
--- NOTE | 2020-03-18 07:10 | NUR ---
Report recieved from Charlene Rollins RN. Patient in bed, spouse at bedside. States he is feeling well this morning. Denies needs at this time. Call light in reach, bed rails up X2.
--- NOTE | 2020-03-18 08:09 | NUR ---
PATIENT AWAKE IN ROOM WITH HIS . BREAKFAST ORDER IN AND WHITE BOARD UPDATED. NO FUTHER NEEDS AT THIS TIME.
--- NOTE | 2020-03-18 09:05 | NUR ---
PATIENT VITAL SIGNS AND I&O'S DOCUMENTED. CALL LIGHT WITHIN REACH NO FURTHER NEEDS AT THIS TIME.
--- NOTE | 2020-03-18 10:43 | NUR ---
PATIENT REFUSED SHOWER SAID HE GOT ONE YESTERDAY. TEETH BRUSHED, HAIR COMBED. AM CARE DONE AND LINEN CHANGED. CALL LIGHT WITHIN REACH AND NO FURTHER NEEDS AT THIS TIME.
--- NOTE | 2020-03-18 13:07 | NUR ---
PATIENT VITAL SIGNS AND I&O'S ARE DOCUMENTED. NO FUTHER NEEDS AT THIS TIME. SON IN ROOM
--- NOTE | 2020-03-18 13:51 | NUR ---
Patient with head of bed elevated. Tolerated full liquid diet without nausea. Pain improved with PRN analgesic. Denies needs at this time. Visitor in room. Call light in reach, bed rails up X2.
--- NOTE | 2020-03-18 14:41 | NUR ---
Ambulating in hallway with spouse at this time.
--- NOTE | 2020-03-18 17:51 | NUR ---
Ambulated in hallway today. Midline incision remains with slight redness to site. Sherrill intact. Pain controlled with PRN analgesic. Diet increased to full liquids today. Tolerated well. IV converted to SL. Continues on IV antibiotics. Multiple bowel movements today.
--- NOTE | 2020-03-18 19:22 | NUR ---
REPORT RECEIVED FROM DAY SHIFT RN. PT LYING IN BED ALERT AND ORIENTED. REPORTS PAIN IS TOLERABLE AT THIS TIME. REQUESTING PRN FOR NAUSEA. IV ABX INFUSING. PT REFUSED DINNER TRAY. VISITOR IN ROOM. WHITE BOARD UPDATED. CALL LIGHT IN REACH.
--- NOTE | 2020-03-18 20:30 | NUR ---
2014-PT BLOOD GLUCOSE 61. PT IS ALERT AND TALKING. ASYMPTOMATIC. CLEAR LIQUID ENSURE PROVIDED. PT ALSO C/O NAUSEA. PRN ZOFRAN ADMINISTERED ABOUT 30 MIN EARLY SO PT WOULD TOLERATE PO INTAKE. 2044-BLOOD GLUCOSE 97. EVENING ASSESSMENT COMPLETE. IV ABX INFUSING. PT REFUSED STOOL SOFTENER D/T HAVING MULTIPLE BM'S TODAY. ABD INCISION INTACT WITH TYESHA. NO DRAINAGE NOTED. REDNESS ON LOWER ABDOMEN IMPROVED FROM PREVIOUS SHIFT. BOWEL TONES ACTIVE. ABD REMAINS DISTENDED. PT REPORTS GENERALIZED EDEMA IMPROVING. FRESH LIQUIDS PROVIDED. NO FURTHER NEEDS AT THIS TIME.
--- NOTE | 2020-03-19 00:06 | NUR ---
PRN ADMINISTERED FOR 6/10 ABD PAIN. PT REPORTS PAIN WITH URINATION X 1 WELL. URINE CLEAR. NO ODOR NOTED. PT AFEBRILE. WILL CONTINUE TO MONITOR.
--- NOTE | 2020-03-19 02:08 | NUR ---
IN TO HANG IV ABX. PT REPORTS "I'M FEELING PRETTY GOOD". NO NEEDS AT THIS TIME.
--- NOTE | 2020-03-19 04:31 | NUR ---
IN TO HANG IV ABX. PT REQUESTING PRN FOR 5/10 ABD PAIN. PRN ADMINISTERED PER EMAR. PT C/O BEING "SLIGHTLY" NAUSEATED. ENCOURAGED PT TO ATTEMPT TO EAT IN HOPES OF DECREASING NAUSEA RELATED TO PAIN MEDS. LARRY AND JELLO PROVIDED. ASSESSMENT COMPLETE. PT REPORTS "JUST A LITTLE" PAIN WITH HIS LAST VOID. ABD INCISION UNCHANGED. BOWEL TONES ACTIVE. PT REPORTS FLATUS. NO FURTHER NEEDS AT THIS TIME.
--- NOTE | 2020-03-19 06:27 | NUR ---
PT RESTING IN BED WITH EYES CLOSED. VS AND I&O COMPLETE. DENIES NEEDS AT THIS TIME.
--- NOTE | 2020-03-19 07:47 | NUR ---
PT LEFT SLEEPING AT TIME OF REPORT. AWAKENS NOW TO VOICE, SITTING UP IN BED. DENIES PAIN BUT STATES HE IS A LITTLE NAUSEATED. ENCOURAGED PT TO HAVE SOME BREAKFAST..... CREAM OF WHEAT AND YOGURT ORDERED. NO MEDS GIVEN AT THIS TIME WILL GIVE WITH FOOD. PT DENIES ANY EMESIS OR HEAVING
[2020-03-19] MEDS ORDERED: COLACE100 MG PO (08:11)
[2020-03-19] MEDS ORDERED: NORCO 7.5-3251 EACH PO (08:11)
[2020-03-19] MEDS ORDERED: VENTOLIN HFA18 GM (08:13)
[2020-03-19] MEDS ORDERED: ONDANSETRON ODT4 MG SL (08:13)
--- NOTE | 2020-03-19 09:21 | NUR ---
DR MOCK IN TO SEE PT. PT TOLERATES BOWL OF CREAM OF WHEAT NO C/O, NO S/S OF DISCOMFORT. PT VISITS ACTIVELY APPEARS CHEERFUL AND ENGAGED. WOUND CARE AND DC INSTRUCTIONS DISCUSSED. PT DENIES CONCERNS ALL QUESTIONS ANSWERED.
--- NOTE | 2020-03-19 11:51 | PATH ---
[facility] [address], [place] [address] Signed SPECIMEN(S): A APPENDIX SPECIMEN SOURCE: A. APPENDIX CLINICAL HISTORY: Acute appendicitis. FINAL PATHOLOGIC DIAGNOSIS: Appendix, appendectomy: - Severe acute appendicitis with periappendicitis. NAL:cml:C2NR MICROSCOPIC EXAMINATION: Histologic sections of all submitted blocks are examined by light microscopy. These findings, together with the gross examination, support the pathologic diagnosis. GROSS DESCRIPTION: The specimen, labeled "DS," and designated on the requisition "appendix," is received in formalin and consists of Specimen: Appendix with mesoappendix. Dimensions: 8.5 cm long, up to 1.4 cm in diameter appendix with attached mesoappendix up to 1.5 cm wide Serosa: Georges to dark brown, diffusely covered with adhesions and barber exudate. The appendix forms a U-shape due to the adhesions. Perforation: A grossly definitive perforation is not identified. Inking: The proximal appendix is without a staple line and is inked black. Mucosa: Focally flattened, georges to dark brown. Fecalith: The lumen contains a 5.2 cm long, up to 0.8 cm diameter, hard, brown fecalith that is 0.6 cm from the proximal margin. Additional: None. Fireproof Door Assembler sections are submitted in cassette (A1). AI (under the direct supervision of a pathologist) The Gross Description was prepared using a voice recognition system. The report was reviewed for accuracy; however, sound-alike word errors, addition and/or deletions may occur. If there is any question about this report, please contact Client Services. PERFORMING LABORATORY: PATIENT NAME: HILDA MILLAN PATHOLOGY DATE OF : 65 REPORT #: [id number] PHYSICIAN: RICKY BARCLAY PCP: OTHER PCP REPORT IS CONFIDENTIAL AND NOT TO BE RELEASED WITHOUT AUTHORIZATION [facility] [address] [id number] Signed The technical [place] [address] (Float Builder: Candace Leary MD; CLIA# [id number]). Professional interpretation was performed by [facility], [address] [address] (CLIA# [id number]). Diagnostician: Melissa Churchill MD Pathologist Electronically Signed 03/19/2020 Copies: ~ PATIENT NAME: HILDA MILLAN PATHOLOGY DATE OF : 65 REPORT #: [id number] PHYSICIAN: RICKY BARCLAY PCP: OTHER PCP REPORT IS CONFIDENTIAL AND NOT TO BE RELEASED WITHOUT AUTHORIZATION
--- NOTE | 2020-03-19 14:02 | NUR ---
PT IS SITTING ON BED DRESSED, HIS MOTHER ASSISTING WITH SOCKS. PT IS WAITING FOR CASE SUPERVISOR TO COME FOR DC. VINH CHERRY
--- NOTE | 2020-03-20 06:20 | DS ---
[facility] [address] [place], [place] [address] Signed ADMISSION DATE: 03/14/2020 DISCHARGE DATE: 03/19/2020 FINAL DIAGNOSIS: Acute necrotic appendicitis. PROCEDURE: Laparoscopic converted to open appendectomy. HISTORY OF PRESENT ILLNESS: Hilda is a 54-year-old gentleman out from [place], [place] to help his son build his house. For at least two days, he was having abdominal pain. It became periumbilical and localized to the right lower quadrant. He was having nausea, vomiting, and diarrhea along with some fevers. He finally came to emergency room for evaluation. His white count was high at 22.5. He had localized peritoneal signs and symptoms in the right lower quadrant. The CT scan confirmed his thickened inflamed appendix with multiple appendicoliths. He also had moderate stranding around his appendix. I have been asked to admit him as a general surgeon on-call. HOSPITAL COURSE: Hilda was admitted and received initial dose of Zosyn and was then switched over to cefepime and Flagyl throughout his hospital stay for a total of five days of antibiotics. He was taken to the operating room that same day for a laparoscopic converted to an open appendectomy. He did indeed have quite a bit of inflammation around the appendix. He apparently takes oxycodone from his primary care provider. Consequently he took quite a bit of narcotics here in the hospital. I think that is partly what contributed to his ileus following surgery. We spoke with him each and every day regarding that situation. We slowly but surely wean down his narcotic use. We also had our Internal Medicine Service see him because of his blood sugars and so forth. Initially, he was quite distended and quite firm and finally that passed with additional flatus and several bowel movements yesterday. Today, he is slightly distended and slightly firm, not much improved. I can see he slept the last couple of nights and is feeling much better overall. Consequently, due to his progress, we are going to be discharging him to home. DISCHARGE PLANS AND MEDICATIONS: We are going to discharge Don home with a prescription for [place] 7.5/325 one to two tablets p.o. q.6 hours p.r.n. for severe pain. We will dispense 35 tablets with no refills. He can use Tylenol p.r.n. for euwu-vw-efntrggh pain. He can purchase that [id number]. He wants to continue the Colace at 100 mg p.o. b.i.d. for the next week. We will dispense 15 tablets with no refills. In addition, he wanted to use the Electronically Signed By: VIPUL BARNETT MD 03/20/20 0620 PATIENT NAME: HILDA MILLAN DISCHARGE SUMMARY DATE OF : 65 REPORT #: [id number] PHYSICIAN: VIPUL BARNETT MD PCP: OTHER PCP REPORT IS CONFIDENTIAL AND NOT TO BE RELEASED WITHOUT AUTHORIZATION [address] [address] Signed Zofran 4 mg 1-2 tablets sublingual q.6 hours p.r.n. for nausea. We will give him 10 tablets with one refill. Although, he has been encouraged to take a little food with his narcotics and that seems to help his nausea as well. In addition, he can continue all his chronic medications at home. He will follow his usual diet as well. He is not to do any heavy pushing, pulling, or lifting over 20 pounds. He can shower and bathe as usual. We will leave all the carol in place. I will discontinue his antibiotics at the time of discharge. I will see him back in my office in 7 to 14 days for followup. He has expressed understanding and agrees with the above plan. Vipul Barnett MD ALB/MODL /[id number] cc: Dr. Nayan Childress. Copies: ~ Electronically Signed By: VIPUL BARNETT MD 03/20/20 0620 PATIENT NAME: HILDA MILLAN DISCHARGE SUMMARY DATE OF : 65 REPORT #: [id number] PHYSICIAN: VIPUL BARNETT MD PCP: OTHER PCP REPORT IS CONFIDENTIAL AND NOT TO BE RELEASED WITHOUT AUTHORIZATION
== END 2020-03-19 11:00 | disposition home or self-care (01) | DRG 342 ==
LOC: ED 05:51 → MS 05:54 → ED 05:54 → MS 05:54 → DS 09:55 → ED 09:55 → MS 09:56 → DS 09:56 → MS 03-19 11:00
PROVIDERS: ADMIT Colon & Rectal Surgery; ATTEND Colon & Rectal Surgery
PROC: 0WJG4ZZ Inspection of Peritoneal Cavity, Percutaneous Endoscopic Approach (ICD-10-PCS; 2020-03-14)
PROC: 0DTJ0ZZ Resection of Appendix, Open Approach (ICD-10-PCS; principal; 2020-03-14 13:30)
DX: K35.31 Acute appendicitis with localized peritonitis and gangrene, without perforation (principal); K56.7 Ileus, unspecified; K38.1 Appendicular concretions; Z20.828 Contact with and (suspected) exposure to other viral communicable diseases; E11.9 Type 2 diabetes mellitus without complications; I10 Essential (primary) hypertension; K21.9 Gastro-esophageal reflux disease without esophagitis; E78.5 Hyperlipidemia, unspecified; T40.605A Adverse effect of unspecified narcotics, initial encounter; Y92.239 Unspecified place in hospital as the place of occurrence of the external cause; Z53.31 Laparoscopic surgical procedure converted to open procedure; Z79.4 Long term (current) use of insulin; Z79.899 Other long term (current) drug therapy
CPT/HCPCS: 00840; 36415; 74177; 80048; 80053; 81001; 83690; 83735; 84100; 85025; 93005; 93010; 96361; 99285-25; A9270; C9113; C9803; J0692; J1100; J1170; J1650; J1815; J1885; J2001; J2405; J2543; J2550; J2704; J3010; J3475; J7030; J7121; Q9967; U0003